=== PATIENT | male | born 1970 | race Caucasian/White ===

== ENCOUNTER 2025-01-07 19:56 | Inpatient (IN) | payer OTHER ==
[2025-01-07 20:36] VITALS: BMI 25.0
[2025-01-07] MEDS ORDERED: LOPERAMIDE HCL 2 MG CAPSULE PO PRN (20:51)
[2025-01-07] MEDS ORDERED: BENZONATATE 200 MG CAPSULE PO PRN (20:51)
[2025-01-07] MEDS ORDERED: BISMUTH SUBSALICYLATE 524 MG/30 ML PO PRN (20:51)
[2025-01-07] MEDS ORDERED: ONDANSETRON *ODT* 4 MG TABLET SL PRN (20:51)
[2025-01-07] MEDS ORDERED: IBUPROFEN 400 MG TABLET (FP) PO PRN (20:51)
[2025-01-07] MEDS ORDERED: BENZOCAINE/MENTHOL (CHLORASEPTIC ) LOZENGE MM PRN (20:51)
[2025-01-07] MEDS ORDERED: MAG HYDROX/AL HYDROX/SIMETH 30 ML UNIT-DOSE CUP PO PRN (20:51)
[2025-01-07] MEDS ORDERED: MAGNESIUM HYDROX 2400MG/30ML ORAL SUSPENSION 30 ML CUP PO PRN (20:51)
[2025-01-07] MEDS ORDERED: NALOXONE (NARCAN) HCL 4 MG/0.1 ML SPRAY NS PRN (20:51)
[2025-01-07] MEDS ORDERED: POLYETHYLENE GLYCOL (HEALTHYLAX) 3350 17 GM PACKET PO PRN (20:51)
[2025-01-07] MEDS ORDERED: DICYCLOMINE HCL 10 MG CAPSULE PO PRN (20:51)
[2025-01-07] MEDS: THIAMINE 100 MG TABLET PO SCH (22:31)
[2025-01-07] MEDS: MELATONIN 5 MG TABLETS PO SCH (22:31)
[2025-01-07] MEDS: METHOCARBAMOL 500 MG TABLET PO PRN (22:31)
[2025-01-07] MEDS: ACETAMINOPHEN 325 MG TABLET (FP) PO PRN (22:32)
[2025-01-08] MEDS: diazePAM 5 MG TABLET PO SCH (05:54)
[2025-01-08] MEDS: IBUPROFEN 600 MG TABLET (FP) PO PRN (06:41)
[2025-01-08] MEDS: PRENATAL VITAMINS W/ FOLIC ACID TABLET (FP) PO SCH (10:16)
[2025-01-08] MEDS: BETAMETHASONE DIPR 0.05% OINT 45 GM TUBE TP SCH (10:50)
[2025-01-08 11:49] LABS: HEMATOCRIT 38.8 % (35.4-49); HEMOGLOBIN 12.7 GM/dL (11.7-16.9); MCH 32.7 pg (25.7-33.7); MCHC 32.8 g/dl (32.0-35.9); MEAN CELL VOLUME 99.8 fl (80-96); MEAN PLT VOLUME 9.8 fl (7.5-11.1); PLATELET COUNT 164 10^3/uL (134-434); RBC 3.89 M/mm3 (4.00-5.60); RDW 14.8 % (11.9-15.9); WHITE BLOOD COUNT 5.5 K/mm3 (4.0-10.0)
[2025-01-08 11:58] LABS: POTASSIUM 4.3 mmol/L (3.5-5.1)
[2025-01-08 12:04] LABS: ALBUMIN 3.5 g/dl (3.4-5.0); BLOOD UREA NITROGEN 13.2 mg/dL (7-18); CALCIUM 9.1 mg/dL (8.5-10.1)
[2025-01-08 12:07] LABS: CREATININE 0.6 mg/dL (0.55-1.3)
[2025-01-09] MEDS: diazePAM 5 MG TABLET PO SCH (05:32)
[2025-01-09] MEDS: guaiFENesin 600 MG TABLET.ER (FP) PO PRN (08:11)
[2025-01-09] MEDS: diazePAM 5 MG TABLET PO PRN (09:58)
[2025-01-09] MEDS ORDERED: P-EPHED 60MG/TRIPROLIDI 2.5MG TABLET PO PRN (12:03)
[2025-01-10] MEDS: diazePAM 5 MG TABLET PO SCH (05:16)
[2025-01-11] MEDS: diazePAM 5 MG TABLET PO ONE (05:33)
[2025-01-11 09:09] VITALS: BP 121/87; PULSE 71; RESP 17; TEMP 97.7
== END 2025-01-11 11:45 | disposition home or self-care (01) | DRG 897 ==
LOC: YASAS 19:56 → Y3N 21:46
PROVIDERS: ADMIT Allergy & Immunology; ATTEND Allergy & Immunology
PROC: HZ2ZZZZ Detoxification Services for Substance Abuse Treatment (ICD-10-PCS; principal; 2025-01-07)
DX: F10.230 Alcohol dependence with withdrawal, uncomplicated (principal); F17.210 Nicotine dependence, cigarettes, uncomplicated; F32.A Depression, unspecified; L40.9 Psoriasis, unspecified; Z62.810 Personal history of physical and sexual abuse in childhood; Z63.8 Other specified problems related to primary support group
CPT/HCPCS: 36415; 80053; 80305; 80307; 85027; 86780; 93005; 93010